=== PATIENT | female | born 1935 | race Caucasian/White ===

== ENCOUNTER 2022-08-03 06:40 | Inpatient (IN) | payer MEDICARE, OTHER ==
[2022-08-03 07:50] LABS: #Basophils 0.1 10x3/uL (0.0-0.2); #Eosinphils 0.1 10x3/uL (0.0-0.5); #Neutrophils 9.1 10x3/uL (1.5-8.4); %Basophils 0.4 % (0.0-2.0); %Eosinophils 0.8 % (0.0-6.0); %Lymphocytes 18.1 % (18.0-47.0); %Monocytes 8.2 % (0.0-10.0); %Neutrophils 72.2 % (40.0-75.0); Hemoglobin 11.2 g/dL (12.0-15.5); Mean Corpuscular HGB CONC 31.5 g/dL (32.0-36.0); Mean Corpuscular Hemoglobin 28.1 pg (27.0-33.0); Mean Corpuscular Volume 89.2 fl (81.6-98.3); Mean Platelet Volume 11.2 fl (7.4-10.4); Platelet Count 307 10x3/uL (150-450); RBC Distribution Width 14.2 % (11.5-14.5); Red Blood Cell (RBC) Count 3.98 10x6/uL (3.90-5.03); White Blood Cell (WBC) Count 12.6 10x3/uL (3.5-10.5)
[2022-08-03 08:04] LABS: INR-International Normal Ratio 2.3; PTT 39.2 sec (22.0-33.0); Prothrombin Time 23.5 sec (9.5-12.1)
[2022-08-03 08:06] LABS: ALT (SGPT) 7 U/L (8-55); AST (SGOT) 15 U/L (5-34); Albumin 4.2 g/dL (3.4-4.8); Alkaline Phosphatase 113 U/L (40-110); Anion Gap 14 mmol/L (10-20); BUN (Urea Nitrogen) 16 mg/dL (9.8-20.1); Bilirubin, Total 0.6 mg/dL (0.2-1.2); Calc. Creatinine Clearance 0 mL/min (70-130); Calcium 9.6 mg/dL (7.8-10.44); Carbon Dioxide 26 mmol/L (23-31); Chloride 100 mmol/L (98-107); Estimated GFR 48; Globulin 3.5 g/dL (2.4-3.5); Glucose 109 mg/dL (83-110); Protein, Total 7.7 g/dL (5.8-8.1); Sodium 136 mmol/L (136-145)
[2022-08-03] MEDS ORDERED: Acetaminophen 500 MG TAB ONE (08:55)
[2022-08-03] MEDS ORDERED: Metoprolol Tartrate 5 MG/5 ML VIAL ONE (08:56)
[2022-08-03] MEDS ORDERED: Cefepime 2 GM VIAL ONE (08:56)
[2022-08-03] MEDS ORDERED: Benzonatate 100 MG CAP PO PRN (09:23)
[2022-08-03] MEDS ORDERED: GUAIFENESIN SF SOLN 200 MG/10 ML UDCUP PO PRN (09:23)
[2022-08-03] MEDS ORDERED: Acetaminophen 650 MG Suppository PR PRN (09:26)
[2022-08-03] MEDS ORDERED: Ondansetron ODT 4 MG TAB PO PRN (09:26)
[2022-08-03] MEDS ORDERED: Senokot S 8.6-50 MG TAB PO PRN (09:26)
[2022-08-03] MEDS ORDERED: Ondansetron PF 4 MG/2 ML Vial IVP PRN (09:26)
[2022-08-03] MEDS ORDERED: Ipratropium/Albuterol 3 ML NEB NEB PRN (09:30)
[2022-08-03] MEDS ORDERED: Vancomycin 1.5 GRAM/300 ML BAG 1.5 GM in Premix Bag 1 BAG IVPB SCH (10:00)
[2022-08-03] MEDS ORDERED: Diltiazem 125 MG in Sodium Chloride 0.9% 100 ML IVPB SCH (10:30)
[2022-08-03] MEDS ORDERED: diphenhydrAMINE 50 MG/ML VIAL ONE (11:10)
[2022-08-03 11:32] LABS: Troponin I Less than 0.010 ng/mL (< 0.028)
[2022-08-03] MEDS ORDERED: Azithromycin 500 MG VIAL ONE (11:58)
[2022-08-03] MEDS ORDERED: Azithromycin 500 MG in Sodium Chloride 0.9% 250 ML 250 ML IVPB SCH (12:00)
[2022-08-03] MEDS ORDERED: Apixaban 2.5 MG TAB PO SCH (12:00)
[2022-08-03 12:27] LABS: Bilirubin Neg (Negative); Blood, Urine Negative (Negative); Clarity Clear (Clear); Glucose, Urine (Dipstick) Normal (Negative); Ketone, Urine Negative (Negative); Leukocyte 100 (Negative); Nitrite Negative (Negative); Protein, Urine (Dipstick) 15 mg/dl (Neg-Trace); Urobilinogen Normal mg/dL (Less than 2)
[2022-08-03 12:37] LABS: Bacteria/HPF Rare-Few HPF (None Seen); RBC/HPF 0-3 HPF (0-3)
[2022-08-03 12:46] LABS: Legionella Urinary Ag Negative (Negative); Strep pneumo Urine Ag NEGATIVE (NEGATIVE)
[2022-08-03] MEDS: Sodium Chloride 0.9% 1,000 ML IV SCH (14:03)
[2022-08-03 15:12] LABS: SARS-CoV-2 NAA Rapid Test Not Detected (NotDetected)
[2022-08-03 16:01] VITALS: BMI 26.4
[2022-08-03] MEDS ORDERED: FLU VACC QS2022-23(65YR UP)/PF 240 MCG/0.7 ML SYRINGE IM ONE (17:45)
[2022-08-03] MEDS: Apixaban 2.5 MG TAB PO SCH (20:12)
[2022-08-03] MEDS: Atorvastatin Calcium 10 MG TAB PO SCH (20:12)
[2022-08-03] MEDS: Sotalol HCl 80 MG TAB PO SCH (20:12)
[2022-08-03] MEDS ORDERED: Metoprolol Tartrate 5 MG/5 ML VIAL IVP SCH (20:15)
[2022-08-03] MEDS ORDERED: Spironolactone 25 MG TAB PO SCH (21:00)
[2022-08-03] MEDS: Metoprolol Tartrate 5 MG/5 ML VIAL IVP PRN (23:45)
[2022-08-04] MEDS: Metoprolol Tartrate 5 MG/5 ML VIAL IVP PRN ×5 (01:33→23:38)
[2022-08-04] MEDS: Sodium Chloride 0.9% 1,000 ML IV SCH (05:52)
[2022-08-04 06:16] LABS: #Eosinphils 0.3 10x3/uL (0.0-0.5); #Monocytes 1.1 10x3/uL (0.0-1.1); #Neutrophils 6.4 10x3/uL (1.5-8.4); %Basophils 0.3 % (0.0-2.0); %Eosinophils 2.7 % (0.0-6.0); %Monocytes 10.9 % (0.0-10.0); %Neutrophils 64.8 % (40.0-75.0); Hemoglobin 9.8 g/dL (12.0-15.5); Mean Corpuscular HGB CONC 31.8 g/dL (32.0-36.0); Mean Corpuscular Hemoglobin 27.7 pg (27.0-33.0); Mean Platelet Volume 10.5 fl (7.4-10.4); Platelet Count 290 10x3/uL (150-450); RBC Distribution Width 14.3 % (11.5-14.5); Red Blood Cell (RBC) Count 3.54 10x6/uL (3.90-5.03); White Blood Cell (WBC) Count 9.8 10x3/uL (3.5-10.5)
[2022-08-04 06:21] LABS: Anion Gap 13 mmol/L (10-20); BUN (Urea Nitrogen) 14 mg/dL (9.8-20.1); Calc. Creatinine Clearance 47 mL/min (70-130); Calcium 8.8 mg/dL (7.8-10.44); Carbon Dioxide 24 mmol/L (23-31); Chloride 104 mmol/L (98-107); Estimated GFR 55; Glucose 98 mg/dL (83-110); Potassium 4.3 mmol/L (3.5-5.1); Sodium 137 mmol/L (136-145)
[2022-08-04] MEDS: Carvedilol 6.25 MG TAB PO SCH ×2 (06:36→17:04)
[2022-08-04] MEDS: Acetaminophen 325 MG TAB PO PRN ×2 (06:41→23:51)
[2022-08-04] MEDS ORDERED: Vancomycin HCl 1 GM in Sodium Chloride 0.9% 250 ML 250 ML IVPB SCH (10:00)
[2022-08-04] MEDS: cefTRIAXone\\ROCEPHIN 1 GM in Sodium Chloride 0.9% 100 ML IVPB SCH (10:17)
[2022-08-04] MEDS: Losartan 25 MG TAB PO SCH (10:17)
[2022-08-04] MEDS: Sotalol HCl 80 MG TAB PO SCH ×2 (10:18→20:13)
[2022-08-04] MEDS: Clopidogrel Bisulfate 75 MG TAB PO SCH (10:21)
[2022-08-04] MEDS: Apixaban 2.5 MG TAB PO SCH (10:23)
[2022-08-04] MEDS: Doxycycline 100 MG CAP PO SCH (20:12)
[2022-08-04] MEDS: Atorvastatin Calcium 10 MG TAB PO SCH (20:14)
[2022-08-04 20:28] LABS: INR-International Normal Ratio 1.7; Prothrombin Time 18.1 sec (9.5-12.1)
[2022-08-04] MEDS ORDERED: Warfarin Sodium 5 MG TAB PO SCH (23:30)
[2022-08-05 04:54] LABS: Anion Gap 13 mmol/L (10-20); BUN (Urea Nitrogen) 15 mg/dL (9.8-20.1); Calc. Creatinine Clearance 52 mL/min (70-130); Calcium 8.9 mg/dL (7.8-10.44); Carbon Dioxide 21 mmol/L (23-31); Chloride 104 mmol/L (98-107); Estimated GFR 62; Glucose 97 mg/dL (83-110); Sodium 134 mmol/L (136-145)
[2022-08-05 04:58] LABS: INR-International Normal Ratio 1.5; Prothrombin Time 16.1 sec (9.5-12.1)
[2022-08-05] MEDS: Clopidogrel Bisulfate 75 MG TAB PO SCH (10:09)
[2022-08-05] MEDS: Sotalol HCl 80 MG TAB PO SCH ×2 (10:09→21:01)
[2022-08-05] MEDS: Losartan 25 MG TAB PO SCH (10:10)
[2022-08-05] MEDS: Carvedilol 6.25 MG TAB PO SCH ×2 (10:10→17:30)
[2022-08-05] MEDS: cefTRIAXone\\ROCEPHIN 1 GM in Sodium Chloride 0.9% 100 ML IVPB SCH (10:10)
[2022-08-05] MEDS: Doxycycline 100 MG CAP PO SCH ×2 (10:10→21:01)
[2022-08-05] MEDS ORDERED: Warfarin Sodium 5 MG TAB PO SCH (17:00)
[2022-08-05] MEDS: Atorvastatin Calcium 10 MG TAB PO SCH (21:01)
[2022-08-05] MEDS ORDERED: Cyproheptadine 4 MG TAB PO SCH (21:15)
[2022-08-06 04:29] LABS: INR-International Normal Ratio 1.4; Prothrombin Time 15.2 sec (9.5-12.1)
[2022-08-06 04:46] VITALS: TEMP 98.4
[2022-08-06] MEDS ORDERED: Levothyroxine Sodium 125 MCG TAB PO SCH (06:30)
[2022-08-06] MEDS: Sotalol HCl 80 MG TAB PO SCH (08:58)
[2022-08-06] MEDS: Losartan 25 MG TAB PO SCH (08:58)
[2022-08-06] MEDS: Clopidogrel Bisulfate 75 MG TAB PO SCH (08:58)
[2022-08-06 08:59] VITALS: BP 123/62
[2022-08-06] MEDS: cefTRIAXone\\ROCEPHIN 1 GM in Sodium Chloride 0.9% 100 ML IVPB SCH (08:59)
[2022-08-06] MEDS: Carvedilol 6.25 MG TAB PO SCH (08:59)
[2022-08-06] MEDS: Doxycycline 100 MG CAP PO SCH (08:59)
[2022-08-06] MEDS ORDERED: Ezetimibe 10 MG TAB PO SCH (09:00)
== END 2022-08-06 11:57 | disposition home or self-care (01) | DRG 602 ==
LOC: CSHERS 06:40 → CSHERHOLD 10:36 → INTOOBSV 10:36 → CSHTELE 15:28 → OBSVTOIN 08-04 15:56
PROVIDERS: ADMIT Family Medicine; ATTEND Internal Medicine
DX: L03.116 Cellulitis of left lower limb (principal); J18.9 Pneumonia, unspecified organism; E87.1 Hypo-osmolality and hyponatremia; N17.9 Acute kidney failure, unspecified; I48.0 Paroxysmal atrial fibrillation; E78.5 Hyperlipidemia, unspecified; E03.9 Hypothyroidism, unspecified; F03.90 Unspecified dementia, unspecified severity, without behavioral disturbance, psychotic disturbance, mood disturbance, and anxiety; K21.9 Gastro-esophageal reflux disease without esophagitis; F41.9 Anxiety disorder, unspecified; I12.9 Hypertensive chronic kidney disease with stage 1 through stage 4 chronic kidney disease, or unspecified chronic kidney disease; I25.10 Atherosclerotic heart disease of native coronary artery without angina pectoris; G47.33 Obstructive sleep apnea (adult) (pediatric); M25.572 Pain in left ankle and joints of left foot; N18.2 Chronic kidney disease, stage 2 (mild); J44.9 Chronic obstructive pulmonary disease, unspecified; Z20.822 Contact with and (suspected) exposure to COVID-19; Z88.8 Allergy status to other drugs, medicaments and biological substances; Z79.899 Other long term (current) drug therapy; Z79.890 Hormone replacement therapy; Z79.01 Long term (current) use of anticoagulants; Z82.49 Family history of ischemic heart disease and other diseases of the circulatory system; Z86.73 Personal history of transient ischemic attack (TIA), and cerebral infarction without residual deficits; Z91.041 Radiographic dye allergy status; Z98.890 Other specified postprocedural states; Z90.710 Acquired absence of both cervix and uterus; Z87.891 Personal history of nicotine dependence; Z90.49 Acquired absence of other specified parts of digestive tract; Z88.2 Allergy status to sulfonamides
CPT/HCPCS: 36415; 71045; 80048; 80053; 81001; 83605; 83735; 84145; 84443; 84484; 85025; 85610; 85730; 87040; 87081; 87449; 87899; 93005; 93306; 94760; 96365; 96366; 96368; 96375; 96376; G0378; J0456; J0692; J0696; J1200; J3370; J3490; J7050

== ENCOUNTER 2022-11-01 01:16 | Inpatient (IN) | payer MEDICARE ==
[2022-11-01 02:10] LABS: #Monocytes 0.8 10x3/uL (0.0-1.1); #Neutrophils 10.3 10x3/uL (1.5-8.4); %Basophils 0.1 % (0.0-2.0); %Lymphocytes 15.3 % (18.0-47.0); %Monocytes 6.3 % (0.0-10.0); %Neutrophils 77.7 % (40.0-75.0); Hemoglobin 8.1 g/dL (12.0-15.5); Mean Corpuscular HGB CONC 29.8 g/dL (32.0-36.0); Mean Corpuscular Hemoglobin 24.5 pg (27.0-33.0); Mean Corpuscular Volume 82.2 fl (81.6-98.3); Mean Platelet Volume 10.1 fl (7.4-10.4); Platelet Count 404 10x3/uL (150-450); RBC Distribution Width 17.3 % (11.5-14.5); Red Blood Cell (RBC) Count 3.31 10x6/uL (3.90-5.03); White Blood Cell (WBC) Count 13.2 10x3/uL (3.5-10.5)
[2022-11-01 02:21] LABS: ALT (SGPT) 22 U/L (8-55); AST (SGOT) 27 U/L (5-34); Albumin 3.7 g/dL (3.4-4.8); Alkaline Phosphatase 109 U/L (40-110); Anion Gap 19 mmol/L (10-20); BUN (Urea Nitrogen) 43 mg/dL (9.8-20.1); Bilirubin, Total 1.1 mg/dL (0.2-1.2); Calc. Creatinine Clearance 0 mL/min (70-130); Calcium 8.3 mg/dL (7.8-10.44); Carbon Dioxide 23 mmol/L (23-31); Chloride 97 mmol/L (98-107); Estimated GFR 27; Globulin 2.8 g/dL (2.4-3.5); Glucose 128 mg/dL (83-110); Potassium 5.6 mmol/L (3.5-5.1); Protein, Total 6.5 g/dL (5.8-8.1); Sodium 133 mmol/L (136-145)
[2022-11-01 04:11] LABS: Anisocytosis SLIGHT = 6-15 cells (100X) (0-5/hpf); Hypochromia SLIGHT = 6-15 cells (100X) (0-5/hpf); Ovalocytes SLIGHT = 2-5 cells (100X) (0-1/hpf); Polychromasia SLIGHT = 2-3 cells (100X) (0-2/hpf)
[2022-11-01 04:12] LABS: Platelet Morphology Comment Appears Adequate
[2022-11-01 04:28] LABS: Bilirubin Neg (Negative); Blood, Urine Negative (Negative); Clarity Slightly Cloudy (Clear); Glucose, Urine (Dipstick) Normal (Negative); Ketone, Urine Negative (Negative); Leukocyte Negative (Negative); Nitrite Negative (Negative); Protein, Urine (Dipstick) 100 mg/dl (Neg-Trace); Specific Gravity, Urine 1.025 (1.005-1.030); Urobilinogen Normal mg/dL (Less than 2)
[2022-11-01 05:00] LABS: Bacteria/HPF 2+ HPF (None Seen); RBC/HPF 0-3 HPF (0-3); Squamous Epithelial 0-3 HPF (0-3)
[2022-11-01 05:01] LABS: Lactic Acid 1.7 mmol/L (0.5-2.2)
[2022-11-01] MEDS ORDERED: Calcium Gluc 4.6 MEQ/10 ML (100 MG/ML) ONE (05:53)
[2022-11-01] MEDS ORDERED: Acetaminophen 325 MG TAB PO PRN (05:59)
[2022-11-01] MEDS ORDERED: Ondansetron PF 4 MG/2 ML Vial IVP PRN (05:59)
[2022-11-01] MEDS ORDERED: Calcium Carbonate 500 MG ChewTAB PO PRN (05:59)
[2022-11-01] MEDS ORDERED: Guaifenesin DM 100-10/5 ML UDCUP PO PRN (05:59)
[2022-11-01] MEDS ORDERED: Famotidine/PF 20 mg/2ml Vial SLOW IVP SCH (06:00)
[2022-11-01] MEDS ORDERED: Calcium Gluc 4.6 MEQ/10 ML (100 MG/ML) SLOW IVP SCH (06:00)
[2022-11-01] MEDS ORDERED: Ipratropium/Albuterol 3 ML NEB NEB PRN (06:03)
[2022-11-01] MEDS ORDERED: ALPRAZolam 0.25 MG TAB PO PRN (06:06)
[2022-11-01] MEDS ORDERED: Sodium Chloride 0.9% 1,000 ML IV SCH (06:15)
[2022-11-01] MEDS ORDERED: Lidocaine 2% Viscous Solution 10 ML, Aluminum & Magnesium Hydroxide 30 ML SSW SCH (06:15)
[2022-11-01] MEDS ORDERED: Pantoprazole 40 MG VIAL IVP SCH ×3 (06:15→21:00)
[2022-11-01] MEDS ORDERED: methylPREDNISolone Sod Succ 40 MG VIAL IVP SCH ×4 (06:15→21:00)
[2022-11-01 08:06] VITALS: BMI 25.2
[2022-11-01] MEDS: Mometasone/Formoterol 200/5 60 PUFF INH SCH ×2 (08:44→20:12)
[2022-11-01] MEDS: Ipratropium/Albuterol 3 ML NEB NEB SCH ×3 (08:45→20:12)
[2022-11-01] MEDS: Ezetimibe 10 MG TAB PO SCH (08:57)
[2022-11-01] MEDS: Benzonatate 100 MG CAP PO SCH ×3 (08:57→23:17)
[2022-11-01] MEDS: Levothyroxine Sodium 125 MCG TAB PO SCH (08:57)
[2022-11-01] MEDS ORDERED: Sotalol HCl 80 MG TAB PO SCH (09:00)
[2022-11-01 09:05] LABS: #Monocytes 0.9 10x3/uL (0.0-1.1); #Neutrophils 8.9 10x3/uL (1.5-8.4); %Basophils 0.1 % (0.0-2.0); %Lymphocytes 17.7 % (18.0-47.0); %Monocytes 7.1 % (0.0-10.0); %Neutrophils 74.6 % (40.0-75.0); Hemoglobin 8.4 g/dL (12.0-15.5); Mean Corpuscular HGB CONC 29.7 g/dL (32.0-36.0); Mean Corpuscular Hemoglobin 24.5 pg (27.0-33.0); Mean Corpuscular Volume 82.5 fl (81.6-98.3); Mean Platelet Volume 9.8 fl (7.4-10.4); Platelet Count 393 10x3/uL (150-450); RBC Distribution Width 17.5 % (11.5-14.5); Red Blood Cell (RBC) Count 3.43 10x6/uL (3.90-5.03); White Blood Cell (WBC) Count 11.9 10x3/uL (3.5-10.5)
[2022-11-01] MEDS: cefTRIAXone\\ROCEPHIN 1 GM in Sodium Chloride 0.9% 100 ML IVPB SCH (09:10)
[2022-11-01 09:14] LABS: INR-International Normal Ratio 1.5; PTT 27.7 sec (22.0-33.0); Prothrombin Time 15.6 sec (9.5-12.1)
[2022-11-01 09:28] LABS: Anion Gap 19 mmol/L (10-20); BUN (Urea Nitrogen) 48 mg/dL (9.8-20.1); Calc. Creatinine Clearance 23 mL/min (70-130); Calcium 8.6 mg/dL (7.8-10.44); Carbon Dioxide 23 mmol/L (23-31); Chloride 98 mmol/L (98-107); Estimated GFR 25; Glucose 124 mg/dL (83-110); Potassium 5.5 mmol/L (3.5-5.1); Sodium 134 mmol/L (136-145)
[2022-11-01 12:48] LABS: SARS-CoV-2 NAA Rapid Test Not Detected (NotDetected)
[2022-11-01] MEDS ORDERED: Dextrose 50% Abboject 50 ML SYRINGE SLOW IVP SCH (13:00)
[2022-11-01] MEDS ORDERED: Insulin Regular 300 UNITS/3 ML VIAL IVP SCH (13:00)
[2022-11-01] MEDS ORDERED: Furosemide 100 MG/10 ML VIAL SLOW IVP SCH (13:00)
[2022-11-01] MEDS ORDERED: Dextrose 10% in Water 250 ML IVPB SCH (13:00)
[2022-11-01 16:03] LABS: Creatinine, Urine 70.92 mg/dL (47-110)
[2022-11-01 16:36] LABS: Hemoglobin 8.4 g/dL (12.0-15.5); Platelet Count 398 10x3/uL (150-450)
[2022-11-01 16:49] LABS: Anion Gap 18 mmol/L (10-20); BUN (Urea Nitrogen) 51 mg/dL (9.8-20.1); Calc. Creatinine Clearance 22 mL/min (70-130); Calcium 8.6 mg/dL (7.8-10.44); Carbon Dioxide 23 mmol/L (23-31); Chloride 99 mmol/L (98-107); Estimated GFR 23; Glucose 94 mg/dL (83-110); Potassium 4.6 mmol/L (3.5-5.1); Sodium 135 mmol/L (136-145)
[2022-11-01] MEDS: Atorvastatin Calcium 10 MG TAB PO SCH (23:17)
[2022-11-01] MEDS: Apixaban 2.5 MG TAB PO SCH (23:17)
[2022-11-01] MEDS: Sotalol HCl 80 MG TAB PO SCH (23:17)
[2022-11-01] MEDS: QUEtiapine 25 MG TAB PO SCH (23:17)
[2022-11-01] MEDS: Magnesium Oxide 400 MG TAB PO SCH (23:17)
[2022-11-02] MEDS: Ipratropium/Albuterol 3 ML NEB NEB SCH ×4 (03:31→20:11)
[2022-11-02 05:07] LABS: #Monocytes 0.3 10x3/uL (0.0-1.1); #Neutrophils 7.2 10x3/uL (1.5-8.4); %Monocytes 3.1 % (0.0-10.0); %Neutrophils 79.2 % (40.0-75.0); Hemoglobin 7.8 g/dL (12.0-15.5); Mean Corpuscular HGB CONC 30.7 g/dL (32.0-36.0); Mean Corpuscular Hemoglobin 24.8 pg (27.0-33.0); Mean Corpuscular Volume 80.9 fl (81.6-98.3); Mean Platelet Volume 9.9 fl (7.4-10.4); Platelet Count 340 10x3/uL (150-450); RBC Distribution Width 17.4 % (11.5-14.5); Red Blood Cell (RBC) Count 3.14 10x6/uL (3.90-5.03); White Blood Cell (WBC) Count 9.1 10x3/uL (3.5-10.5)
[2022-11-02 05:18] LABS: INR-International Normal Ratio 1.8; PTT 32.3 sec (22.0-33.0); Prothrombin Time 19.1 sec (9.5-12.1)
[2022-11-02 05:21] LABS: Anion Gap 18 mmol/L (10-20); BUN (Urea Nitrogen) 50 mg/dL (9.8-20.1); Calc. Creatinine Clearance 25 mL/min (70-130); Calcium 8.2 mg/dL (7.8-10.44); Carbon Dioxide 25 mmol/L (23-31); Chloride 98 mmol/L (98-107); Estimated GFR 27; Glucose 102 mg/dL (83-110); Potassium 3.9 mmol/L (3.5-5.1); Sodium 137 mmol/L (136-145)
[2022-11-02] MEDS ORDERED: Furosemide 40 MG/4 ML VIAL SLOW IVP SCH (06:00)
[2022-11-02] MEDS: Levothyroxine Sodium 125 MCG TAB PO SCH (06:35)
[2022-11-02] MEDS: Mometasone/Formoterol 200/5 60 PUFF INH SCH ×2 (07:00→20:14)
[2022-11-02] MEDS: Fluticasone Propionate Nasal Spray 16 gm Bottle NASAL SCH (08:55)
[2022-11-02] MEDS: cefTRIAXone\\ROCEPHIN 1 GM in Sodium Chloride 0.9% 100 ML IVPB SCH (08:55)
[2022-11-02] MEDS: Sotalol HCl 80 MG TAB PO SCH ×3 (08:56→23:00)
[2022-11-02] MEDS: Ezetimibe 10 MG TAB PO SCH (08:56)
[2022-11-02] MEDS: Magnesium Oxide 400 MG TAB PO SCH ×2 (08:56→20:32)
[2022-11-02] MEDS: Apixaban 2.5 MG TAB PO SCH ×2 (08:56→20:32)
[2022-11-02] MEDS: Benzonatate 100 MG CAP PO SCH ×3 (08:56→20:32)
[2022-11-02] MEDS: Clopidogrel Bisulfate 75 MG TAB PO SCH (08:56)
[2022-11-02] MEDS ORDERED: Metoprolol Tartrate 25 MG TAB PO SCH (09:00)
[2022-11-02] MEDS ORDERED: Spironolactone 25 MG TAB PO SCH (09:00)
[2022-11-02 17:24] LABS: Iron 16 ug/dL (50-170); Iron Binding Capacity, Total 406 mcg/dL (265-497)
[2022-11-02] MEDS: Albumin 25% 25 GM/100 ML BOT IVPB SCH ×2 (17:24→22:43)
[2022-11-02 18:02] LABS: Albumin 3.5 g/dL (3.4-4.8); Anion Gap 17 mmol/L (10-20); BUN (Urea Nitrogen) 52 mg/dL (9.8-20.1); BUN/Creatinine Ratio 29.89; Calc. Creatinine Clearance 26 mL/min (70-130); Calcium 8.7 mg/dL (7.8-10.44); Carbon Dioxide 28 mmol/L (23-31); Chloride 95 mmol/L (98-107); Estimated GFR 28; Glucose 115 mg/dL (83-110); Phosphorus 4.2 mg/dL (2.3-4.7); Potassium 4.3 mmol/L (3.5-5.1); Sodium 136 mmol/L (136-145)
[2022-11-02] MEDS: QUEtiapine 25 MG TAB PO SCH (20:32)
[2022-11-02] MEDS: Atorvastatin Calcium 10 MG TAB PO SCH (20:32)
[2022-11-02] MEDS ORDERED: Sotalol HCl 80 MG TAB PO SCH (21:00)
[2022-11-02 22:02] LABS: Creatinine, Urine 41.9 mg/dL (47-110)
[2022-11-03] MEDS: Ipratropium/Albuterol 3 ML NEB NEB SCH ×3 (01:57→09:22)
[2022-11-03 04:32] LABS: Hemoglobin 7.7 g/dL (12.0-15.5); Platelet Count 357 10x3/uL (150-450)
[2022-11-03 04:48] LABS: Anion Gap 14 mmol/L (10-20); BUN (Urea Nitrogen) 49 mg/dL (9.8-20.1); Calc. Creatinine Clearance 27 mL/min (70-130); Calcium 8.4 mg/dL (7.8-10.44); Carbon Dioxide 29 mmol/L (23-31); Chloride 98 mmol/L (98-107); Estimated GFR 30; Glucose 102 mg/dL (83-110); Potassium 3.4 mmol/L (3.5-5.1); Sodium 138 mmol/L (136-145)
[2022-11-03] MEDS: Levothyroxine Sodium 125 MCG TAB PO SCH (05:52)
[2022-11-03] MEDS ORDERED: Furosemide 40 MG TAB PO SCH (07:30)
[2022-11-03] MEDS: Mometasone/Formoterol 200/5 60 PUFF INH SCH (08:15)
[2022-11-03] MEDS ORDERED: Potassium Chloride 20 MEQ TAB PO SCH (09:00)
[2022-11-03] MEDS ORDERED: EPOETIN ALFA-EPBX (ESRD) 3,000 UNIT/ML VIAL SC SCH (09:00)
[2022-11-03] MEDS ORDERED: Furosemide 40 MG/4 ML VIAL SLOW IVP SCH (09:00)
[2022-11-03] MEDS ORDERED: Clopidogrel Bisulfate 75 MG TAB PO SCH (09:00)
[2022-11-03] MEDS ORDERED: EPOETIN ALFA-EPBX (ESRD) 2,000 UNIT/ML VIAL SC SCH (09:00)
[2022-11-03] MEDS ORDERED: Iron, Sodium Ferric Gluconate 250 MG in Sodium Chloride 0.9% 250 ML 250 ML IVPB SCH (09:00)
[2022-11-03] MEDS: Ezetimibe 10 MG TAB PO SCH (10:01)
[2022-11-03] MEDS: Clopidogrel Bisulfate 75 MG TAB PO SCH (10:01)
[2022-11-03] MEDS: Benzonatate 100 MG CAP PO SCH (10:02)
[2022-11-03] MEDS: Magnesium Oxide 400 MG TAB PO SCH (10:03)
[2022-11-03] MEDS: Sotalol HCl 80 MG TAB PO SCH (10:03)
[2022-11-03] MEDS: Apixaban 2.5 MG TAB PO SCH (10:03)
[2022-11-03] MEDS: cefTRIAXone\\ROCEPHIN 1 GM in Sodium Chloride 0.9% 100 ML IVPB SCH (10:10)
[2022-11-03] MEDS: Fluticasone Propionate Nasal Spray 16 gm Bottle NASAL SCH (10:16)
[2022-11-03 12:20] VITALS: BP 123/77; TEMP 98
== END 2022-11-03 13:10 | DRG 177 ==
LOC: SUATTDRO 01:16 → CSHERS 01:16 → CSHTELE 05:59
PROVIDERS: ADMIT Student in an Organized Health Care Education/Training Program; ATTEND Family Medicine
PROC: 30233J1 Transfusion of Nonautologous Serum Albumin into Peripheral Vein, Percutaneous Approach (ICD-10-PCS; principal; 2022-11-02)
DX: J69.0 Pneumonitis due to inhalation of food and vomit (principal); I50.33 Acute on chronic diastolic (congestive) heart failure; N17.9 Acute kidney failure, unspecified; I13.0 Hypertensive heart and chronic kidney disease with heart failure and stage 1 through stage 4 chronic kidney disease, or unspecified chronic kidney disease; G93.40 Encephalopathy, unspecified; J44.0 Chronic obstructive pulmonary disease with (acute) lower respiratory infection; G47.33 Obstructive sleep apnea (adult) (pediatric); I25.10 Atherosclerotic heart disease of native coronary artery without angina pectoris; E78.5 Hyperlipidemia, unspecified; E86.0 Dehydration; E87.5 Hyperkalemia; E03.9 Hypothyroidism, unspecified; I48.0 Paroxysmal atrial fibrillation; F41.9 Anxiety disorder, unspecified; F03.90 Unspecified dementia, unspecified severity, without behavioral disturbance, psychotic disturbance, mood disturbance, and anxiety; Z66 Do not resuscitate; N18.30 Chronic kidney disease, stage 3 unspecified; K21.9 Gastro-esophageal reflux disease without esophagitis; D50.9 Iron deficiency anemia, unspecified; E87.6 Hypokalemia; D63.1 Anemia in chronic kidney disease; Z20.822 Contact with and (suspected) exposure to COVID-19; Z95.5 Presence of coronary angioplasty implant and graft; Z90.49 Acquired absence of other specified parts of digestive tract; Z90.710 Acquired absence of both cervix and uterus; Z88.2 Allergy status to sulfonamides; Z88.1 Allergy status to other antibiotic agents; Z79.01 Long term (current) use of anticoagulants; Z79.51 Long term (current) use of inhaled steroids; Z79.899 Other long term (current) drug therapy; Z86.73 Personal history of transient ischemic attack (TIA), and cerebral infarction without residual deficits; Z98.890 Other specified postprocedural states
CPT/HCPCS: 36415; 70450; 71045; 74150; 80048; 80053; 81003; 81015; 82274; 82570; 82728; 83540; 83550; 83605; 83735; 83880; 84156; 84300; 84443; 84484; 84540; 85014; 85018; 85025; 85049; 85610; 85730; 87086; 93005; 94640; 94760; C9113; J0612; J0696; J1815; J1940; J2920; J3490; J7050; J7620; P9047; Q5105